=== PATIENT | male | born 1965 | race Caucasian/White ===

== ENCOUNTER 2022-06-20 15:23 | Outpatient (REF) | payer BC, SELFPAY ==
[2022-06-20 14:38] LABS: Abs Immature Grans 0.02 10^3/uL (0.0-0.06); Absolute Basophil Count 0.05 10^3/uL (0.0-0.2); Absolute Eosinophil Count 0.09 10^3/uL (0.0-0.7); Absolute Lymphocyte Count 1.84 10^3/uL (1.2-3.4); Absolute Monocyte Count 0.49 10^3/uL (0.1-0.8); Absolute Neutrophil Count 3.48 10^3/uL (1.2-6.7); Basophils % 0.8; Eosinophils % 1.5; HCT 48.6 % (40.0-50.0); HGB 16.7 g/dL (13.5-17.5); Immature Grans % 0.3; Lymphocytes % 30.8; MCHC 34.4 % (32.0-36.0); MCV 90 fL (80-95); MPV 11.4 fL (8.0-11.0); Monocytes % 8.2; Neutrophils % 58.4; Platelet Count 237 10^3/uL (130-400); RBC 5.38 10^6/uL (4.36-5.78); RDW 12.1 % (11.8-14.1); RDW-SD 39.8 fL; WBC 5.97 10^3/uL (4.4-10.8)
[2022-06-20 15:37] LABS: ALT 56 U/L (16-63); AST 18 U/L (15-37); Alkaline Phosphatase 120 U/L (46-116); Anion Gap 9.2 mmol/L (3-11); BUN 14 mg/dL (7-18); Bilirubin, Total 0.8 mg/dL (0.2-1.0); CO2 26.8 mmol/L (21.0-32.0); CREATININE 1.1 mg/dL (0.70-1.30); Calcium 8.9 mg/dL (8.5-10.1); Chloride 99 mmol/L (98-107); Cholesterol 277 mg/dL (<200); Estimated GFR 78.79 (mL/min/1.73m2); Glucose 350 mg/dL (74-106); HDL Cholesterol 35 mg/dL (40-60); Potassium 4.7 mmol/L (3.5-5.1); Sodium 135 mmol/L (136-145); TSH (W/Ref FT4) 1.62 uIU/mL (0.36-3.74); Total Protein 7.5 g/dL (6.4-8.2); Triglyceride 599 mg/dL (<150)
[2022-06-20 16:12] LABS: LDL CHOLESTEROL 159 mg/dL (<100)
[2022-06-20 17:13] LABS: Hemoglobin A1C 11.5 % (<5.7)
== END 2022-06-20 15:24 | disposition home or self-care (01) ==
LOC: NCHCN 15:23
PROVIDERS: Visit Provider Nurse Practitioner Family
DX: I10 Essential (primary) hypertension (principal); E78.5 Hyperlipidemia, unspecified; R73.03 Prediabetes; G62.9 Polyneuropathy, unspecified
CPT/HCPCS: 80053; 80061; 83721; 83036; 84443; 85025

== ENCOUNTER 2022-10-05 09:38 | Outpatient (CLI) | payer BC, SELFPAY ==
[2022-10-05 10:04] LABS: Hemoglobin A1C 7.2 % (<5.7)
[2022-10-10 13:19] LABS: Apolipoprotein B, Serum 108 mg/dL; Beta VLDL Cholesterol Not Detected mg/dL (<15); Beta VLDL Triglycerides Not Detected mg/dL (<15); Cholesterol, Total, CDC 205 mg/dL; Chylomicron Cholesterol Not Detected; Chylomicron Triglycerides Not Detected; HDL Cholesterol, CDC 39 mg/dL (>=40); LDL Cholesterol 131 mg/dL; LDL Triglycerides 75 mg/dL (<=50); Lp(a) Cholesterol <5 mg/dL (<5); LpX Not detected; Triglycerides, CDC 195 mg/dL; VLDL Cholesterol 35 mg/dL (<30); VLDL Triglycerides 96 mg/dL (<120)
== END 2022-10-05 09:39 | disposition home or self-care (01) ==
LOC: LBO 09:38
PROVIDERS: PCP Nurse Practitioner Family; Visit Provider Nurse Practitioner Family
DX: E11.9 Type 2 diabetes mellitus without complications (principal); E78.5 Hyperlipidemia, unspecified
CPT/HCPCS: 36415; 80061; 82172; 82664; 83036

== ENCOUNTER 2022-10-20 06:06 | Day surgery (SDC) | payer BC, SELFPAY ==
--- NOTE | 2022-10-19 19:08 | PDOC.DSDIS_ITS ---
Date of service: 10/20/22 Time of Service: 08:08 Discharge Plan Disposition Patient Disposition: Home Condition: Good Discharge Details Reason For Visit: Screening colonoscopy Attending Provider: Yaya Whitney Primary Care Provider: VINNIE PEDERSEN Home Meds and New Rx's Prescriptions: Continued lisinopril 10 mg tablet 10 mg PO DAILY rosuvastatin [Crestor] 5 mg tablet 5 mg PO DAILY magnesium citrate Solution 150 ml PO .COMPLEX Qty: 300 0RF Rx Instructions: use as instructed for bowel prep Discharge Instructions Instructions: Colorectal Polyps (GEN) Additional Instructions: Natalio we were able to complete your colonoscopy today without any problems. I did find 4 polyps. All were quite small. I removed them all completely. When I have the results from the pathology report, I will be in touch regarding the next steps. Obviously, with your family history, at the very least, you will need another colonoscopy in 5 years. 1. If tolerated, consume a soft, low fiber diet for 1-2 days. 2. Do not drive, drink alcohol, operate machinery, make critical decisions, or do activities that require coordination or balance for 24 hours. 3. Because air was put into your colon during the procedure, expelling air from your rectum (passing gas or farting) is normal. 4. You may not have a bowel movement for 1-3 days because of the colonoscopy prep. This is normal. 5. Go directly to the emergency room if you notice any of the following: Develop chills (warm to touch), or if you have a thermometer and your temperature is above 101 Difficulty breathing or difficultly swallowing Persistent vomiting Severe abdominal pain, other than gas cramps Severe chest pain Black, tarry stools Any bleeding ? exceeding one tablespoon 6. Call your physician if the site where your intravenous was started becomes red, swollen, painful, and warm to touch. 7. Your physician has reviewed your pre-procedure medications. Please continue to take those medications as previously ordered. You will be given specific i nformation/education regarding any changes to your medications before leaving. Activity:: Activity as Tolerated Diet:: As Tolerated Discharge Orders Discharge Orders: Discharge Order (Routine); Ordered 10/19/22 Ordered By: Yaya Whitney DS: Diagnosis Discharge Diagnosis (1) Screen for colon cancer: Status: Acute Asessment and Plan: I will follow-up on pathology results
--- NOTE | 2022-10-19 19:10 | W.COLOREPORT ---
Date of service: 10/20/22 Time of Service: 08:09 Colonoscopy Report Date of procedure: 10/20/22 Pre-op diagnosis general: Screening colonoscopy Post-op diagnosis procedure note: other (Colon polyps) Procedure: Colonoscopy with polypectomy Surgeon: Yaya Whitney Anesthesia Type: General:No Airway Estimated blood loss (mL): 10 Pathology: other (0.25 cm polyp at 75 cm, 0.25 cm polyp at 65 cm, 0.5 cm polyp at 55 cm, 0.25 cm polyp at 55 cm) Complications: None Disposition: same day Indications: Giorgi is a 57 year old man who needs a screening colonoscopy Prep: Miralax Procedure Start Time: 07:33 Procedure End Time: 07:55 Retraction Time: 16 Findings: 4 Polyps ranging from 0.25 cm to 0.5 cm Procedure Description: After the induction of monitored anesthetic care, and with the patient in left lateral decubitus position, I began by performing an external anorectal exam.? Perineum and skin were normal, as was the anal verge.? There was no evidence of external hemorrhoids.? Next, I performed a digital rectal exam.? I did not appreciate any abnormal findings.? Next, I advanced a colonoscope into the rectal vault.? I performed retroflexion.? This appeared normal to me.? Using insufflation, I then advanced the colonoscope beyond the rectal folds and into the sigmoid colon before advancing towards the cecum.? The quality of the prep was excellent.? The scope was noted to be in the cecum by identification of the ileocecal valve and appendiceal orifice.? I then began withdrawing the colonoscope using repeated irrigation as necessary for full evaluation of the colonic mucosa. Around 75 cm from the anal verge I identified a 0.25 cm polyp. ?It appeared sessile in character. ?I was able to remove this with a cold forcep polypectomy. ?I examined the site, and there was minimal bleeding. ?Once this was completed, I continued to withdraw the scope and examine the remainder of the colonic mucosa. Similarly, I found a 0.25 cm polyp at 65 cm, a 0.5 cm polyp at 55 cm, and another 0.25 cm polyp also around 55 cm from the anal verge. All of these were sessile. I removed them all with cold forceps. Once the scope was withdrawn to the level of the rectum, great care was taken to examine portions of the rectal folds.? Finally, the scope was withdrawn and the patient was brought to the same-day surgery recovery unit as the anesthetic wore off. ?The findings and instructions were shared with the patient prior to discharge.
[2022-10-20 06:24] VITALS: BP 127/98; PULSE 76; RESP 16; TEMP 36.4; O2SAT 98
--- NOTE | 2022-10-20 06:58 | W.ANESPRE ---
General Info Date of Service Date Performed: 10/20/22 Height: 6 ft Weight: 121.5 kg Body Mass Index (BMI): 36.3 Surgical Procedure: Operation Date: 10/20/22 07:35 Proposed Procedure Side Surgeon p Zeyad Whitney MD Meds Allergies and Home Medications Allergies Allergy/AdvReac Type Severity Reaction Status Date / Time No Known Drug Allergies Allergy Unknown Verified 10/19/22 10:06 Home Medication Medication Instructions Recorded lisinopril 10 mg tablet 10 mg PO DAILY 10/03/22 rosuvastatin 5 mg tablet (Crestor) 5 mg PO DAILY 10/03/22 magnesium citrate 150 ml PO .COMPLEX #300 mL 10/05/22 Current Visit Medications: Current Medications Generic Name Dose Route Start Last Admin Trade Name Freq PRN Reason Stop Dose Admin Hyoscyamine Sulfate 0.125 mg 10/19/22 19:11 Hyoscyamine 0.125 Mg Sl/Oral/Chew SL 11/18/22 19:10 DIRECTED PRN Ringer's Solution 1,000 mls @ 80 mls/hr 10/20/22 06:00 IV 11/18/22 23:59 [facility] IV Miscellaneous Supplies 1 each 10/20/22 06:00 Iv Access IV 11/18/22 23:59 DIRECTED JADIEL Ondansetron HCl 4 mg 10/19/22 19:11 Ondansetron 4 Mg/2 Ml Vial IVP 11/18/22 19:10 Q4H PRN PRN Nausea / Vomiting Sodium Chloride 0 ml 10/20/22 06:00 Normal Saline Flush 10 Ml Syr IV 11/18/22 23:59 PRN PRN Sodium Chloride 0 ml 10/20/22 06:00 Normal Saline 10 Ml Vial IJ 11/18/22 23:59 DIRECTED PRN Sterile Water 0 ml 10/20/22 06:00 Water,Injection,Sterile 10 Ml Vial IJ 11/18/22 23:59 DIRECTED PRN PFSH Active Problems Active Problems: Problem Status Onset Code Family history of colon cancer Z80.0 Essential hypertension I10 Screen for colon cancer Z12.11 Medical History Medical History BMI 38.0-38.9,adult Dyslipidemia Elevated blood pressure reading Eustachian tube dysfunction left Neuropathy Type 2 diabetes mellitus Surgical History Surgical History (Updated 10/20/22 @ 06:32 by Luna Joyner RN) Hx of appendectomy Tobacco Smoking/Tobacco Use Status: Never Alcohol Alcohol Intake: current Alcohol intake frequency: a few times a month Alcohol type: other Substance Use Substance use: Never Substance use type: does not use Vital Signs and Lab Results Vital Signs Most Recent Vital Signs in EMR: Most Recent Vital Signs Temp Pulse Resp BP Pulse Ox 36.4 C L 76 16 127/98 H 98 10/20/22 06:24 10/20/22 06:24 10/20/22 06:24 10/20/22 06:24 10/20/22 06:24 Lab Results Blood Type / Crossmatch: No Data to Display Complete Blood Count: No Data to Display Complete Metabolic Panel: Hemoglobin A1c 7.2 % (<5.7) H 10/05/22 09:18 Liver Function Panel: No Data to Display Coagulation Panel: No Data to Display Cardiac Panel: No Data to Display Arterial Blood Gas: No Data to Display Venous Blood Gas: No Data to Display Pancreas Panel: No Data to Display Thyroid Panel: No Data to Display Infectious Disease: No Data to Display Blood Cultures: No Data to Display Toxicology Panel: No Data to Display Anesthesia Assessment and Plan Anesthesia History Personal History: No History of Anesthesia Complications Family History: No Family History of Anesthesia Complications Exercise Tolerance Exercise Tolerance: Metabolic Equivalents>4 Pertinent Negatives Pertinent Negatives: No Symptoms of GERD, No Major Cardiovascular Symptoms or Complaints, No Major Pulmonary Symptoms or Complaints and No History of CVA/TIA Cardiac & Pulmonary Exam Cardiac Exam: Normal S1/S2 Heart Sounds Pulmonary Exam: Clear Bilateral Breath Sounds Implantable Cardiac Device Does patient have a Pacemaker or an ICD?: No Airway Exam Known Difficult Airway: No Mallampati Class: 3 Mouth Opening: Normal (> 3cm) Thyromental Distance: Greater than 3 cm Neck Range of Motion: Full ROM Neck Circumference: Normal Teeth Condition: Normal Dentition ASA Classification ASA Score: ASA 2 Emergency Case?: No NPO Status NPO Status: NPO Clears >2 hours, Solids >8 hours Anesthesia Plan Resuscitation Status: Full Code Anesthesia Technique: General Anesthesia Airway Planned: Natural Airway Monitors Used: Standard Monitors
[2022-10-20] MEDS: Lactated Ringers 1,000 ML 80 ML IV (07:05)
[2022-10-20 07:20] VITALS: BMI 36.3
--- NOTE | 2022-10-20 07:44 | BOWEL_PTH ---
PATIENT: Giorgi [place] LOC: [facility] U#:[id number] AGE/SX: 57/M ROOM: RE10/20/[address]: Yaya Whitney MD : [id number] BED: DIS: 10/20/2022 SPEC #: [id number] RECD: 10/20/22 12:23 STATUS: TIBURCIO RE #: [id number] JELENA: 10/20/22 07:[address]: Yaya Whitney DEPT: Surgical Specimen RECD BY: Jillian Abraham ENTERED: 10/20/22 12:26 SP TYPE: Bowel OTHR DR: VINNIE PEDERSEN, PULMONOLOGIST INTENSIVIST Tissues: 1 - BIOPSY BOWEL 2 - BIOPSY BOWEL 3 - BIOPSY BOWEL 4 - BIOPSY BOWEL Procedures: GROSS AND MICRO LEVEL 4 Comments: [id number]
[2022-10-20 08:01] VITALS: BP 110/87; PULSE 80; RESP 17; TEMP 36.5; O2SAT 96
[2022-10-20 08:32] VITALS: BP 136/80; PULSE 69; RESP 18; TEMP 36.5; O2SAT 96
--- NOTE | 2022-10-20 08:57 | W.ANESPOSTOP ---
Postoperative Evaluation Date, Time and Location Date Performed: 10/20/22 Time Performed: 08:16 Patient Location: Day Surgery Unit Vital Signs Most Recent Imported Vital Signs: Most Recent Vital Signs Temp Pulse Resp BP Pulse Ox 36.5 C 69 18 136/80 96 10/20/22 08:32 10/20/22 08:32 10/20/22 08:32 10/20/22 08:32 10/20/22 08:32 Pain Score Most Recent Pain Score: Most Recent Pain Score Pain Level 0 10/20/22 08:32 Assessment Mental Status: Awake (Alert & Oriented to Patient Baseline) Airway and Respiratory Function: Patent airway with normal (patient baseline) respiratory exam Cardiovascular Function: Hemodynamically Stable Hydration Status: Adequately Hydrated Nausea & Vomiting: No Nausea or Vomiting Pain: Pt. Denies Any Pain Peripheral Nerve Block: Patient did not receive a nerve block
== END 2022-10-20 08:40 | disposition home or self-care (01) ==
PROVIDERS: PCP Nurse Practitioner Family; Visit Provider Surgery
PROC: 0DJD8ZZ Inspection of Lower Intestinal Tract, Via Natural or Artificial Opening Endoscopic (ICD-10-PCS; CPT 45378; principal; 2022-10-20 07:30)
DX: Z12.11 Encounter for screening for malignant neoplasm of colon (principal); D12.5 Benign neoplasm of sigmoid colon; Z80.0 Family history of malignant neoplasm of digestive organs; Z86.010 Personal history of colon polyps; K63.89 Other specified diseases of intestine
CPT/HCPCS: 45380; 88305

== ENCOUNTER 2023-04-12 09:59 | Outpatient (REF) | payer BC, SELFPAY ==
[2023-04-12 16:52] LABS: Hemoglobin A1C 6.4 % (<5.7)
[2023-04-12 17:19] LABS: ALT 60 U/L (16-63); AST 30 U/L (15-37); Albumin 3.9 g/dL (3.4-5.0); Alkaline Phosphatase 103 U/L (46-116); BUN 15 mg/dL (7-18); Bilirubin, Total 0.6 mg/dL (0.2-1.0); CREATININE 1.1 mg/dL (0.70-1.30); Calcium 9.5 mg/dL (8.5-10.1); Calculated LDL 79 mg/dL (<100); Chloride 106 mmol/L (98-107); Cholesterol 156 mg/dL (<200); Glucose 223 mg/dL (74-106); HDL Cholesterol 32 mg/dL (40-60); Potassium 4.6 mmol/L (3.5-5.1); Sodium 142 mmol/L (136-145); Total Protein 7.8 g/dL (6.4-8.2); Triglyceride 228 mg/dL (<150)
[2023-04-15 14:00] LABS: Testosterone, Total 293 ng/dL (240-950)
== END 2023-04-12 10:00 | disposition home or self-care (01) ==
LOC: NCHCN 09:59
PROVIDERS: PCP Nurse Practitioner Family; Visit Provider Nurse Practitioner Family
DX: I10 Essential (primary) hypertension (principal); E78.5 Hyperlipidemia, unspecified; E11.9 Type 2 diabetes mellitus without complications; F52.21 Male erectile disorder
CPT/HCPCS: 80053; 80061; 84403; 83036

== ENCOUNTER 2024-10-09 14:35 | Outpatient (REF) | payer BC, SELFPAY ==
[2024-10-09 17:12] LABS: ALT 54 U/L (16-63); AST 45 U/L (15-37); Albumin 4.2 g/dL (3.4-5.0); Alkaline Phosphatase 75 U/L (46-116); Anion Gap 10.1 mmol/L (3-11); BUN 22 mg/dL (7-18); Bilirubin, Total 1.0 mg/dL (0.2-1.0); CO2 24.9 mmol/L (21.0-32.0); Calcium 9.7 mg/dL (8.5-10.1); Chloride 104 mmol/L (98-107); Estimated GFR 99.00 (mL/min/1.73m2); Glucose 98 mg/dL (74-106); Potassium 4.5 mmol/L (3.5-5.1); Sodium 139 mmol/L (136-145); Total Protein 7.9 g/dL (6.4-8.2)
[2024-10-10 13:31] LABS: Hepatitis C Ab w Rflx HCV PCR Negative (Negative)
[2024-10-10 13:44] LABS: HIV-1/2 Ag & Ab Screen Negative (Negative)
[2024-10-10 17:05] LABS: Microalb ug/mg Crea 10.1 ug/mg Cr
== END 2024-10-09 14:36 | disposition home or self-care (01) ==
LOC: NCHCN 14:35
PROVIDERS: PCP Nurse Practitioner Family; Visit Provider Nurse Practitioner Family
DX: E11.9 Type 2 diabetes mellitus without complications (principal); Z11.4 Encounter for screening for human immunodeficiency virus [HIV]; Z11.59 Encounter for screening for other viral diseases
CPT/HCPCS: 80053; 86803; 87389; 82043; 82570; 83036